=== PATIENT | male | born 2005 | race Two or more races ===

== ENCOUNTER 2023-04-13 18:42 | Emergency (ER) | payer SELFPAY ==
--- NOTE | ~2023-04-13 | XR_ITS ---
EXAMINATION: XR CHEST CLINICAL INFORMATION: Cough. COMPARISON: None available. TECHNIQUE: Frontal view of the chest was obtained. FINDINGS: No significant abnormality is noted involving the heart, lungs, mediastinum, bony thorax or soft tissues. XR/XR chest 1V IMPRESSION: Unremarkable examination.
[2023-04-13 19:21] VITALS: BP 147/79; PULSE 78; RESP 18; TEMP 36.7; O2SAT 98; BMI 29.8
--- NOTE | 2023-04-13 19:24 | ED.GENADULT ---
HPI - General Adult General Chief complaint: Asthma Stated complaint: difficulty breathing Time Seen by Provider: 04/13/23 21:13 Source: patient Mode of arrival: ambulatory Limitations: no limitations History of Present Illness HPI narrative: 17 yo male with PMH Of asthma no prior intubations who is not from here ran out of home albuterol INH and his steroid INH - he comes in with 1.5 days of wheezing, dyspnea and chest tightness. He notes no known triggers but denies infectious symptoms and overall is feeling okay. He feels if he had his INH at home he could have treated himself. No fevers. MD complaint: asthma exacerbation Onset (ago): day(s) (1.5) Radiation: non-radiation Severity: mild Relieving factors: rest Exacerbating factors: other (coughing, exertion) Associated symptoms: chest pain (his chest feels tight) Treatments prior to arrival: none Related Data Previous Rx's Medication Instructions Recorded albuterol sulfate 90 mcg/actuation 2 puff inhalation QID PRN 04/13/23 aerosol inhaler shortness of breath or wheezing #6.7 grams fluticasone propionate 110 1 puff inhalation BID #12 grams 04/13/23 mcg/actuation HFA aerosol inhaler prednisone 20 mg tablet 60 mg (3 x 20 mg) PO DAILY 4 days 04/13/23 #12 tabs Allergies Allergy/AdvReac Type Severity Reaction Status Date / Time No Known Allergies Allergy Verified 04/13/23 19:22 Review of Systems Review of Systems: Constitutional : No Fever, No Chills ENT/Mouth : No Hoarseness, No sore throat, No Rhinorrhea Cardiovascular : No Chest Pain, positive SOB, positive Dyspnea on Exertion, No Edema Respiratory : positive Cough, No Sputum, positive Wheezing, Gastrointestinal : No Nausea, No Vomiting, No Diarrhea, No abdominal Pain Genitourinary : No Dysuria, No Hematuria Musculoskeletal : No joint pain, No Myalgias Skin : No rash Neuro : No Weakness, No Numbness, No Headache Psych : No anxiety, depression All other systems reviewed and are negative [facility] Past Medical History Attestation statement: The following information was validated with the patient. Medical History Asthma Social History Social History (Updated 04/13/23 @ 21:22 by Joie Rosales DO) Patient Tobacco Use Status: Never used Tobacco Advance Directives: No Advance Directives Information Provided: No Physical Exam ED Vital Signs: Vital Signs - 24 hr 04/13/23 19:21 04/13/23 20:41 04/13/23 20:43 Temperature 98.1 F 98.1 F 98.1 F Pulse Rate 78 70 70 Respiratory Rate 18 18 18 Blood Pressure 147/79 H 140/87 H 140/70 H Pulse Oximetry 98 97 97 Oxygen Delivery Method Room Air Room Air Room Air 04/13/23 21:34 Temperature Pulse Rate 84 Respiratory Rate 16 Blood Pressure Pulse Oximetry Oxygen Delivery Method BMI result Body Mass Index 29.8 Appearance: Alert. Oriented X3. No acute distress. Eyes: Pupils equal, round and reactive to light. ENT: Pharynx normal. Neck: Normal inspection. Neck supple. CVS: Normal heart rate and rhythm. Pulses normal. Respiratory: No respiratory distress. Breath sounds mild diffuse exp wheezes Abdomen: Soft and nontender. Skin: Skin warm and dry. Normal skin color. Normal skin turgor. Extremities: No lower extremity edema. No calf ttp Neuro: Oriented X 3. No motor deficit. No sensory deficit. Course Course Course Narrative: RME: 17 yold male presents to the ED for Diffculty breathing wheezing, and dry cough. patient states he has been without his albuterol inhaler and nebulizer for a long time. positive for expiratory wheezing. covid, influenza, and xray order. prednisone and broncho dilator ordered Reevaluation(s) Reevaluation #1: feels better stable for DC Medications Administered Discontinued Medications Generic Name Dose Route Start Last Admin Trade Name Johanq PRN Reason Stop Dose Admin Albuterol Sulfate 2 puff 04/13/23 21:21 04/13/23 21:32 Albuterol Sulfate 90 Mcg 8 Gm Inhaler INHALE 04/13/23 21:22 2 puff ONCE ONE Administration Albuterol Sulfate 2.5 mg/ 5 mg 04/13/23 21:26 04/13/23 21:32 Albuterol Sulfate 2.5 mg INHALE 04/13/23 21:27 5 mg ONCE ONE Administration Prednisone 40 mg 04/13/23 19:22 04/13/23 21:20 Prednisone 20 Mg Tablet PO 04/13/23 19:23 40 mg ONCE ONE Administration Medical Decision Making Medical Decision Making MDM Narrative: 17 yo male with PMH of asthma no prior intubations here with c/o wheezing but no fevers or infectious symptoms has mild chest tightness but hx of same with asthma - at this time viral panel and CXR negative will give INH in hand and start on oral steroids. Will give neb treatment and anticipate DC home with prescriptions to manage his asthma. Differential Diagnosis Differential Diagnoses: The differential diagnosis associated with the presentation includes asthma, viral syndrome Admission/Observation Consideration of admission/observation: Escalation of care including admission/observation considered not toxic, no resp distress no hypoxia can be managed as outpatient Lab Data [facility] Lab Attestation statement: I reviewed the patient's lab results. Labs: Lab Results 04/13/23 04/13/23 Range/Units 19:25 19:26 COVID-19 (MAYA) Negative (Negative) COVID-19 Clin Com See Note Influenza Type A (YAIMA) Negative (Negative) Influenza Type B (YAIMA) Negative (Negative) Influenza A & B Note See Note Independent Interpretation I performed an independent interpretation of an: Plain X-Ray (no pneumonia) Radiology Impression Discussion of test interpretation with radiology: I have reviewed the radiologist's reading. Prescription Management I considered prescription management with: Other (inhalers, prednisone) Discharge Plan Discharge Clinical Impression: Asthma with acute exacerbation Patient Disposition: Home, Self-Care Instructions: Asthma (ED) Additional Instructions: use inhaler 2 puffs every 3 to 4 hours for wheezing. return for worsening symptoms, fevers, difficulty breathing or any other concerns. covid/flu and chest xray all normal Prescriptions: New prednisone 20 mg tablet 60 mg PO DAILY 4 Days Qty: 12 0RF albuterol sulfate 90 mcg/actuation HFA aerosol inhaler 2 puff inhalation QID PRN (Reason: shortness of breath or wheezing) Qty: 6.7 0RF fluticasone propionate 110 mcg/actuation HFA aerosol inhaler 1 puff inhalation BID Qty: 12 0RF Rx Instructions: administer with spacer, rinse mouth after Interventions: ED Discharge Assessment Last Done: 04/13/23 22:06 Discharge Date/Time: 04/13/23 22:06
[2023-04-13 19:44] LABS: COVID-19 Test Negative (Negative); IDNOW Serial# 08D9AD1C
[2023-04-13 19:47] LABS: IDNOW Serial# BCCEAD1C; Influenza A Negative (Negative); Influenza B2 Negative (Negative)
[2023-04-13 20:41] VITALS: BP 140/87; PULSE 70; RESP 18; TEMP 36.7; O2SAT 97
[2023-04-13 20:43] VITALS: BP 140/70; PULSE 70; RESP 18; TEMP 36.7; O2SAT 97
--- NOTE | 2023-04-13 21:17 | PC.NURSE ---
resp notified of pt in [facility] for bronchodilator protocol.
[2023-04-13] MEDS: predniSONE 20 MG TABLET 40 MG PO (21:20)
--- NOTE | 2023-04-13 21:21 | PC.NURSE ---
pt medicated per MAR.
[2023-04-13] MEDS: Albuterol Sulfate 90 MCG 8 GM INHALER 2 PUFF INHALE (21:32)
[2023-04-13] MEDS: Albuterol Sulfate 2.5 MG, Albuterol Sulfate (0.083%) 2.5 MG 5 MG INHALE (21:32)
[2023-04-13 21:34] VITALS: PULSE 84; RESP 16; O2SAT 97
== END 2023-04-13 22:06 | disposition home or self-care (01) ==
PROVIDERS: Physician Assistant; Emergency Provider Emergency Medicine
DX: J45.901 Unspecified asthma with (acute) exacerbation (principal); Z11.52 Encounter for screening for COVID-19
CPT/HCPCS: 71045; 87502; 87635; 94640; 99284